=== PATIENT | female | born 1970 | race Two or more races ===

== ENCOUNTER 2019-01-21 10:21 | Inpatient (IN) | payer OTHER ==
[~2019-01-21] VITALS: Ht 160 cm; Wt 75.7 kg
[2019-01-25] MEDS ORDERED: OXYCODONE HCL5 MG PO (07:55)
== END 2019-01-25 09:26 | disposition home or self-care (01) | DRG 743 ==
LOC: EDSTATUS 10:21 → CIR.AMB 11:53 → SURG-SUITE 01-23 06:15 → O/R 01-23 06:15 → SURH 01-23 10:23 → OB/GYN 01-23 15:40 → SURG-SUITE 01-23 16:00
PROVIDERS: ADMIT Obstetrics & Gynecology Maternal & Fetal Medicine
PROC: 0UT90ZL Resection of Uterus, Supracervical, Open Approach (ICD-10-PCS; principal; 2019-01-23 11:30)
DX: D25.1 Intramural leiomyoma of uterus (principal); N80.0 Endometriosis of uterus